=== PATIENT | female | born 1945 | race Caucasian/White ===

== ENCOUNTER → 2016-10-14 | Outpatient (CLI) | payer OTHER ==
--- NOTE | 2016-10-14 12:23 | DIAGNOSTIC IMAGING REPORT ---
PROCEDURE: US VENOUS - BILATERAL EXT INDICATION: RLL ULCER TECHNIQUE: Duplex sonography of the deep and superficial venous system in both lower extremities was performed. Compression and augmentation techniques were used. The patient was scanned in the upright position. Surveillance of the venous system during Valsalva maneuver when appropriate was performed. COMPARISON: None. FINDINGS: There is venous reflux of the right common femoral vein (2.6 seconds) and proximal greater saphenous vein (10 mm diameter, 2.8 seconds). Greater saphenous vein measures 9 mm mid and 10 mm distally. Right superficial femoral vein is competent. Varicose veins present in the calf. There is venous reflux in the left common femoral vein (2.5 seconds) and proximal greater saphenous vein (diameter 11 mm, 2.9 seconds). Greater saphenous vein measures 6 mm mid and 5 mm distally. Left superficial femoral vein is competent. Varicose veins present in the calf. IMPRESSION: 1. Venous insufficiency in the bilateral common femoral and greater saphenous veins 2. Varicose veins in the bilateral calf regions.
--- NOTE | 2016-10-14 12:40 | DIAGNOSTIC IMAGING REPORT ---
PROCEDURE: US ART LOWER EXT DOPPLER-BILAT INDICATION: RLL ULCER TECHNIQUE: Color Doppler duplex imaging of the lower extremities was performed. CLIFFORD's not obtained secondary to location of and side. COMPARISON: None. FINDINGS: Extensive shadowing of the aortic bifurcation consistent with calcific atherosclerosis. There is monophasic wave form of the right common iliac artery. RIGHT LOWER EXTREMITY: VESSELS: Mild atherosclerosis. Monophasic wave form throughout the right lower extremity indicative of inflow disease, except for biphasic wave form of the common femoral artery and proximal SFA. RIGHT LOWER EXTREMITY PEAK SYSTOLIC VELOCITIES: External iliac: 207 cm/second. Common femoral artery: 179 cm/second. Profunda femoral artery: 158 cm/second. Proximal superficial femoral artery: 165 cm/second. Mid superficial femoral artery: 126 cm/second. Distal superficial femoral artery: 148 cm/second. Popliteal artery: 123 cm/second. Proximal posterior tibial artery: 100 cm/second. Proximal anterior tibial artery: 97 cm/second. Distal posterior tibial artery: 177 cm/second. Dorsalis pedis artery: 97 cm/second. LEFT LOWER EXTREMITY: VESSELS: Mild atherosclerosis. Biphasic wave form of the left external iliac, common femoral, deep femoral and superficial femoral arteries with monophasic wave form in the remainder of the left lower extremity. LEFT LOWER EXTREMITY PEAK SYSTOLIC VELOCITIES: External iliac: 206 cm/second. Common femoral artery: 199 cm/second. Profunda femoral artery: 108 cm/second. Proximal superficial femoral artery: 191 cm/second. Mid superficial femoral artery: 148 cm/second. Distal superficial femoral artery: 152 cm/second. Popliteal artery: 136 cm/second. Proximal posterior tibial artery: 132 cm/second. Proximal anterior tibial artery: 108 cm/second. Distal posterior tibial artery: 159 cm/second. Dorsalis pedis artery: 163 cm/second. IMPRESSION: 1. 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 No evidence of high-grade stenosis. 2. Calcific atherosclerosis of the aortic bifurcation with monophasic wave form of the right common iliac artery indicative of inflow disease.
== END ==
LOC: US SRH 09:44
DX: I87.2 Venous insufficiency (chronic) (peripheral) (principal); I83.93 Asymptomatic varicose veins of bilateral lower extremities; I70.208 Unspecified atherosclerosis of native arteries of extremities, other extremity